=== PATIENT | female | born 1945 | race Caucasian/White ===

== ENCOUNTER 2019-03-16 06:30 | Day surgery (SDC) | payer OTHER ==
[~2019-03-16] VITALS: Ht 160 cm; Wt 88.0 kg
[~2019-03-16 06:30] MED LIST: SODIUM CHLORIDE 0.9% 1,000 ML IV ONE
[2019-03-16] MEDS ORDERED: LIDOCAINE 2% 30 ML JELLY TP ONE (06:31)
[2019-03-16] MEDS ORDERED: ALBUTEROL SULFATE 2.5 MG/0.5 ML NEB SOLUTION NEB ONE (06:31)
[2019-03-16] MEDS ORDERED: BENZOCAINE 20% 50 MCG/SPRAY 57 GM TP ONE (06:31)
[2019-03-16] MEDS ORDERED: MONT10TA21 PO (07:08)
[2019-03-16] MEDS ORDERED: DOXY100C PO (07:08)
[2019-03-16] MEDS ORDERED: IMIP25 PO (07:08)
[2019-03-16] MEDS ORDERED: PRAV10TA39 PO (07:08)
[2019-03-16] MEDS ORDERED: CETI10TA59 PO (07:08)
[2019-03-16] MEDS ORDERED: RANI150T7 PO (07:08)
[2019-03-16] MEDS ORDERED: PRED10 PO (07:08)
[2019-03-16] MEDS ORDERED: AMLO-511 PO (07:08)
[2019-03-16] MEDS ORDERED: LEVO75 PO (07:08)
[2019-03-16] MEDS ORDERED: INSLAN SQ ×2 (07:08)
[2019-03-16] MEDS ORDERED: SODIUM CHLORIDE 0.9% 1,000 ML IV ONE (07:30)
[2019-03-16] MEDS ORDERED: MIDAZOLAM HCL 2 MG/2 ML VIAL ONE (07:33)
[2019-03-16] MEDS ORDERED: FentaNYL CITRATE-PF 100 MCG/2 ML VIAL ONE (07:33)
[2019-03-16 07:44] LABS: GLUCOMETER DEV NAME(LOC) SDS.; GLUCOSE,POINT OF CARE 81 MG/DL (70-110)
[2019-03-16] MEDS ORDERED: MethylPREDNISolone SOD SUCC 125 MG/2 ML VIAL IVP ONE (09:15)
[2019-03-16] MEDS ORDERED: MethylPREDNISolone SOD SUCC 125 MG/2 ML VIAL ONE (09:29)
[2019-03-16] MEDS ORDERED: OXYGEN THERAPY IH SCH (20:00)
== END 2019-03-16 11:00 | disposition home or self-care (01) ==
LOC: SURGERY 06:30
PROVIDERS: ATTEND Internal Medicine Critical Care Medicine
DX: J38.4 Edema of larynx (principal); B37.0 Candidal stomatitis; I10 Essential (primary) hypertension; E03.9 Hypothyroidism, unspecified; E78.00 Pure hypercholesterolemia, unspecified; E11.9 Type 2 diabetes mellitus without complications; Z90.49 Acquired absence of other specified parts of digestive tract; Z98.42 Cataract extraction status, left eye; Z98.41 Cataract extraction status, right eye; Z88.0 Allergy status to penicillin; Z79.4 Long term (current) use of insulin
CPT/HCPCS: 31623; 31624; 71045; 82962; 87015; 87070; 87101; 87205; 87206; 87220; 88108; 88312; J2250; J2930; J3010; J7030